=== PATIENT | male | born 1990 | race Caucasian/White ===

== ENCOUNTER 2025-03-27 15:48 | Emergency (ER) | payer OTHER ==
[~2025-03-27] VITALS: Ht 167.6 cm; Wt 75.0 kg
[2025-03-27 16:04] VITALS: O2SAT 100
[2025-03-27] MEDS: KETOROLAC 30MG/ML VIAL IM ONE (18:45)
[2025-03-27] MEDS: LIDOCAINE 5% PATCH TOP STA (19:09)
[2025-03-27] MEDS ORDERED: LIDO700A30 TP (20:11)
[2025-03-27 20:36] VITALS: BP 111/78; PULSE 58; RESP 16; TEMP 36.9; O2SAT 100
== END 2025-03-27 20:43 | disposition home or self-care (01) ==
LOC: ER 15:48
DX: S16.1XXA Strain of muscle, fascia and tendon at neck level, initial encounter (principal); S39.012A Strain of muscle, fascia and tendon of lower back, initial encounter; V89.2XXA Person injured in unspecified motor-vehicle accident, traffic, initial encounter; Y93.89 Activity, other specified; Y92.410 Unspecified street and highway as the place of occurrence of the external cause; Y99.8 Other external cause status
CPT/HCPCS: 72040; 72100; 99284; J1885